=== PATIENT | male | born 1940 | race Caucasian/White ===

== ENCOUNTER 2017-08-12 09:40 | Emergency (ER) | payer MEDICARE, OTHER ==
[~2017-08-12] VITALS: Ht 182.9 cm; Wt 110.9 kg
[~2017-08-12 09:40] MED LIST: ASPI325T PO; ASPI81TA85 PO; COLC1TAB14 PO; CRES20TA PO; FORT10GE TD; MULTCAP PO; NEXI40CA PO; RAMI5CA PO; ZYLO300T4 PO
[2017-08-12] MEDS ORDERED: ASPI1TAB PO (09:52)
--- NOTE | 2017-08-12 10:46 | REP ---
CHEST, TWO VIEWS: Two views of the chest are performed and compared to prior study 08/12/2016. There is interstitial fibrosis which is stable. There is no acute infiltrate. Heart is not enlarged. There is mild tortuosity of the thoracic aorta. Mediastinal silhouette is unchanged. There appears to be a calcified granuloma in the left upper lobe. Multiple sternal wires are present. There are degenerative changes of the spine. IMPRESSION: Stable chronic fibrotic changes without evidence of acute infiltrate. Signed by Galileo Nye MD 08/12/2017 01:41 P
[2017-08-12 11:00] VITALS: BP 122/76
== END 2017-08-12 11:01 | disposition home or self-care (01) ==
LOC: M ED 09:40
DX: M62.830 Muscle spasm of back (principal); Z85.46 Personal history of malignant neoplasm of prostate; Z85.118 Personal history of other malignant neoplasm of bronchus and lung

== ENCOUNTER 2018-06-14 06:46 | Emergency (ER) | payer MEDICARE, OTHER ==
[2018-06-14 08:09] LABS: BASO % 0.7 % (0.0-1.0); EOS # 0.1 10^3/uL (0.0-0.50); EOS % 2.6 % (0.0-3.0); HEMATOCRIT 46.8 % (42.0-52.0); HEMOGLOBIN 16.2 g/dl (13.5-17.5); IMMATURE GRANULOCYTE % 0.9 % (0-3.0); LYMPH # 1.8 10^3/uL (1.5-4.5); MEAN CORPUSCULAR HEMOGLOBIN 33.4 pg (27.0-33.0); MEAN CORPUSCULAR HGB CONC 34.6 g/dl (32.0-36.5); MEAN CORPUSCULAR VOLUME 96.5 fl (80.0-96.0); MONO # 0.6 10^3/uL (0.0-0.8); MONO % 10.7 % (0.0-5.0); NEUTROPHILS # 2.8 10^3/uL (1.8-7.7); NEUTROPHILS % 52.1 % (36.0-66.0); PLATELET COUNT, AUTOMATED 141 10^3/uL (150-450); RED BLOOD COUNT 4.85 10^6/uL (4.30-6.10); RED CELL DISTRIBUTION WIDTH 12.8 % (11.5-14.5); WHITE BLOOD COUNT 5.3 10^3/uL (4.0-10.0)
[2018-06-14 08:28] LABS: ANION GAP 7 MEQ/L (8-16); BLOOD UREA NITROGEN 16 MG/DL (7-18); CALCIUM LEVEL 8.7 MG/DL (8.8-10.2); CARBON DIOXIDE LEVEL 30 MEQ/L (21-32); CHLORIDE LEVEL 106 MEQ/L (98-107); CREATININE FOR GFR 0.98 MG/DL (0.70-1.30); GLOMERULAR FILTRATION RATE > 60.0 (>42); GLUCOSE, FASTING 120 MG/DL (70-100); POTASSIUM SERUM 4.4 MEQ/L (3.5-5.1); SODIUM LEVEL 143 MEQ/L (136-145); URIC ACID 5.2 MG/DL (3.5-7.2)
[2018-06-14 08:35] LABS: APPEARANCE, URINE CLEAR (CLEAR); BACTERIA, URINE AUTO NEGATIVE (NEGATIVE); BILIRUBIN, URINE AUTO NEGATIVE (NEGATIVE); BLOOD, URINE BLOOD NEGATIVE (NEGATIVE); COLOR, URINE YELLOW (YELLOW); GLUCOSE, URINE (UA) AUTO NEGATIVE (NEGATIVE); KETONE, URINE AUTO NEGATIVE (NEGATIVE); LEUKOCYTE ESTERASE, URINE AUTO NEGATIVE (NEGATIVE); NITRITE, URINE AUTO NEGATIVE (NEGATIVE); PROTEIN, URINE AUTO NEGATIVE (NEGATIVE); RBC, URINE AUTO 0 /HPF (0-3); SPECIFIC GRAVITY URINE AUTO 1.014 (1.002-1.035); SQUAMOUS EPITHELIAL CELL UR AU 0 /HPF (0-6); UROBILINOGEN, URINE AUTO 0.2 mg/dL (0.0-2.0); WBC, URINE AUTO 0 /HPF (0-3)
== END 2018-06-14 08:55 | disposition home or self-care (01) ==
LOC: M ED 06:46
DX: K80.20 Calculus of gallbladder without cholecystitis without obstruction (principal); I10 Essential (primary) hypertension; M48.061 Spinal stenosis, lumbar region without neurogenic claudication; Z85.118 Personal history of other malignant neoplasm of bronchus and lung; Z86.73 Personal history of transient ischemic attack (TIA), and cerebral infarction without residual deficits; Z87.19 Personal history of other diseases of the digestive system; Z87.891 Personal history of nicotine dependence
CPT/HCPCS: 71046

== ENCOUNTER 2018-07-01 15:15 | Emergency (ER) | payer MEDICARE, OTHER | END 2018-07-01 17:14 | disposition home or self-care (01) | LOC: M ED 15:15 | DX: L98.9 Disorder of the skin and subcutaneous tissue, unspecified (principal); I10 Essential (primary) hypertension; Z86.73 Personal history of transient ischemic attack (TIA), and cerebral infarction without residual deficits | CPT/HCPCS: 99283 ==

== ENCOUNTER 2019-08-22 13:46 | Emergency (ER) | payer MEDICARE, OTHER ==
[~2019-08-22] VITALS: Ht 182.9 cm; Wt 119.6 kg
[~2019-08-22 13:46] MED LIST changes: +ACET-716 PO; +ASPI-1 PO; -ASPI325T PO; +ASPI81TA26 PO; +BACI500O8 TOP; -CRES20TA PO; +CRES20TA2 PO; +RAMI1CAP24 PO; -RAMI5CA PO; -ZYLO300T4 PO; +ZYLO300T6 PO
[2019-08-22] MEDS ORDERED: OMEP-221 (13:53)
[2019-08-22] MEDS ORDERED: ASPI81TA85 PO (13:53)
[2019-08-22] MEDS ORDERED: ALLOPOW4 (13:53)
[2019-08-22] MEDS ORDERED: ROSU20TA5 (13:53)
[2019-08-22 15:16] VITALS: BP 136/84
--- NOTE | 2019-08-22 18:03 | REP ---
BILATERAL WRIST SERIES: Four views of each wrist are performed. There is a nondisplaced fracture of the right radial styloid process extending in to the radiocarpal joint. I see no other evidence of fracture or dislocation. There is an osteochondroma of the distal anterior radius measuring about 1.3 cm in diameter. There is moderate narrowing of the radiocarpal joint on the right with mild narrowing between the scaphoid and trapezium and severe narrowing between the trapezium and base of first metacarpal with subchondral sclerosis and spurring. There is no fracture or dislocation on the left with moderate to severe radiocarpal joint space narrowing and subchondral sclerosis with similar findings at the joint between the trapezium and base of the first metacarpal. IMPRESSION: Bilateral degenerative changes. Nondisplaced fracture right radial styloid. Osteochondroma distal right radius. Electronically Signed by Galileo Nye MD 08/23/2019 04:42 P
== END 2019-08-22 15:27 | disposition home or self-care (01) ==
LOC: M ED 13:46
DX: S52.514A Nondisplaced fracture of right radial styloid process, initial encounter for closed fracture (principal); M19.031 Primary osteoarthritis, right wrist; M19.032 Primary osteoarthritis, left wrist; W10.8XXA Fall (on) (from) other stairs and steps, initial encounter; Y92.009 Unspecified place in unspecified non-institutional (private) residence as the place of occurrence of the external cause; Z90.49 Acquired absence of other specified parts of digestive tract; Z96.653 Presence of artificial knee joint, bilateral; Z90.2 Acquired absence of lung [part of]; Z86.73 Personal history of transient ischemic attack (TIA), and cerebral infarction without residual deficits; E78.00 Pure hypercholesterolemia, unspecified; I10 Essential (primary) hypertension; Z85.118 Personal history of other malignant neoplasm of bronchus and lung; G47.30 Sleep apnea, unspecified; K21.9 Gastro-esophageal reflux disease without esophagitis; Z85.46 Personal history of malignant neoplasm of prostate; M48.061 Spinal stenosis, lumbar region without neurogenic claudication; Z79.82 Long term (current) use of aspirin; Z79.899 Other long term (current) drug therapy; Y99.8 Other external cause status

== ENCOUNTER 2023-04-07 06:00 | Emergency (ER) | payer MEDICARE, OTHER ==
[~2023-04-07] VITALS: Ht 182.9 cm; Wt 122.7 kg
[~2023-04-07 06:00] MED LIST changes: +ALLOPOW4; -ASPI81TA85 PO; +ASPI81TA86 PO; +OMEP40CA5; +ROSU20TA5
[2023-04-07] MEDS ORDERED: AMOX875T2 (07:14)
[2023-04-07] MEDS ORDERED: BENZ200C70 PO (08:24)
[2023-04-07] MEDS ORDERED: MUCI600T31 PO (08:24)
[2023-04-07 08:32] VITALS: BP 139/85
== END 2023-04-07 08:35 | disposition home or self-care (01) ==
LOC: M ED 06:00
DX: J06.9 Acute upper respiratory infection, unspecified (principal); B34.8 Other viral infections of unspecified site; Z87.891 Personal history of nicotine dependence; Z79.899 Other long term (current) drug therapy

== ENCOUNTER 2023-04-13 11:56 | Emergency (ER) | payer MEDICARE, OTHER ==
[~2023-04-13] VITALS: Ht 182.9 cm; Wt 126.5 kg
[~2023-04-13 11:56] MED LIST changes: +AMOX875T2; +BENZ200C70 PO; +MUCI600T31 PO
[2023-04-13] MEDS ORDERED: ALLO300T2 (12:10)
[2023-04-13] MEDS: COMBIVENT RESPIMAT 100-20MCG INHALER 4GM INH SCH ×2 (12:52→13:30)
[2023-04-13 13:15] LABS: BASO % 0.4 % (0.0-1.0); EOS # 0.1 10^3/uL (0.0-0.5); EOS % 1.4 % (0.0-3.0); HEMATOCRIT 45.3 % (42.0-52.0); HEMOGLOBIN 15.4 g/dl (13.5-17.5); LYMPH # 1.6 10^3/uL (1.5-5.0); LYMPH % 18.3 % (24.0-44.0); MEAN CORPUSCULAR HEMOGLOBIN 32.9 pg (27.0-33.0); MEAN CORPUSCULAR VOLUME 96.8 fl (80.0-96.0); NEUTROPHILS # 5.7 10^3/uL (1.5-8.5); NEUTROPHILS % 66.8 % (36.0-66.0); PLATELET COUNT, AUTOMATED 145 10^3/uL (150-450); RED BLOOD COUNT 4.68 10^6/uL (4.30-6.10); WHITE BLOOD COUNT 8.6 10^3/uL (4.0-10.0)
[2023-04-13 13:39] LABS: BLOOD UREA NITROGEN 16 MG/DL (9-23); CALCIUM LEVEL 9.4 MG/DL (8.3-10.6); CARBON DIOXIDE LEVEL 30 MMOL/L (20-31); CHLORIDE LEVEL 100 MMOL/L (98-107); CREATININE FOR GFR 0.96 MG/DL (0.70-1.30); GLOMERULAR FILTRATION RATE > 60.0 (>35); GLUCOSE, FASTING 134 MG/DL (74-106); POTASSIUM SERUM 4.3 MMOL/L (3.5-5.1); SODIUM LEVEL 135 MMOL/L (136-145)
[2023-04-13] MEDS ORDERED: VENTAER INH (14:33)
[2023-04-13] MEDS ORDERED: OFLO5DRO OU (14:33)
[2023-04-13] MEDS ORDERED: AMOX875T2 PO (14:33)
[2023-04-13 14:41] VITALS: BP 132/76
== END 2023-04-13 14:47 | disposition home or self-care (01) ==
LOC: M ED 11:56
DX: J20.9 Acute bronchitis, unspecified (principal); J44.1 Chronic obstructive pulmonary disease with (acute) exacerbation; H10.9 Unspecified conjunctivitis; I10 Essential (primary) hypertension; Z86.73 Personal history of transient ischemic attack (TIA), and cerebral infarction without residual deficits; K21.9 Gastro-esophageal reflux disease without esophagitis; G47.33 Obstructive sleep apnea (adult) (pediatric); Z85.110 Personal history of malignant carcinoid tumor of bronchus and lung; Z87.891 Personal history of nicotine dependence; Z79.899 Other long term (current) drug therapy